=== PATIENT | male | born 1965 | race Native Hawaiian/Other Pacific Islander ===

== ENCOUNTER 2016-08-25 11:30 | Emergency (ER) | payer OTHER ==
[2016-08-25 11:50] VITALS: RESP 16; TEMP 98.6
[2016-08-25] MEDS ORDERED: Tetracaine 0.5% Ophth 2 ML BOTTLE OD STA (12:14)
--- NOTE | 2016-08-25 12:32 | ED PDOC ---
Arrival/HPI - General Chief Complaint: Eye Problem Time Seen by Provider: 08/25/16 12:09 Historian: Patient - History of Present Illness Narrative History of Present Illness (Text): 08/25/16 12:34 51yr old male presents today with foreign body sensation in right eye. pt states last night he was feeling fine and today he woke up feeling like something was in his eye. pt describes a scratchy feeling only when he blinks. denies blurry vision. denies pain with eye movement. denies trauma or injury. pt states that he flushed the eye out at home but still is having foreign body sensation. no fever/chills. no medications taken at home. no other complaints. Time/Duration: Other (this morning) Severity Level: 1 Past Medical History - Provider Review Nursing Documentation Reviewed: Yes - Travel History Have you recently traveled outside [place] w/in the past 3 mons?: No - Tetanus Immunization Tetanus Immunization: Unknown - Cardiac Hx Cardiac Disorders: Yes Hx Hypertension: Yes - Pulmonary Hx Respiratory Disorders: No - Neurological Hx Neurological Disorder: No - HEENT Hx HEENT Disorder: No - Renal Hx Renal Disorder: No - Endocrine/Metabolic Hx Endocrine Disorders: Yes Hx Diabetes Mellitus Type 2: Yes - Hematological/Oncological Hx Blood Disorders: No - Integumentary Hx Dermatological Disorder: No - Musculoskeletal/Rheumatological Hx Musculoskeletal Disorders: Yes Hx Gout: Yes - Gastrointestinal Hx Gastrointestinal Disorders: No - Genitourinary/Gynecological Hx Genitourinary Disorders: No - Psychiatric Hx Psychophysiologic Disorder: No Hx Substance Use: No Family/Social History - Physician Review Nursing Documentation Reviewed: Yes Family/Social History: Unknown Family HX Smoking Status: Heavy Smoker > 10 Cigarettes Daily Hx Alcohol Use: Yes Frequency of alcohol use: Socially Hx Substance Use: No Allergies/Home Meds Allergies/Adverse Reactions: Allergies No Known Allergies Allergy (Verified 08/25/16 11:47) Home Medications: Home Meds Medication Instructions Recorded Confirmed RX: MetFORMIN [glucoPHAGE] 500 mg PO DAILY 08/25/16 08/25/16 RX: Valsartan [Diovan] 40 mg PO DAILY 08/25/16 08/25/16 Review of Systems - Review of Systems Constitutional: absent: Fatigue, Fevers Eyes: Eye Pain. absent: Vision Changes, Photophobia ENT: absent: Sore Throat, Sinus Congestion Respiratory: absent: SOB, Cough Cardiovascular: absent: Chest Pain Gastrointestinal: absent: Abdominal Pain Skin: absent: Rash, Pruritis Neurological: absent: Headache, Dizziness Physical Exam Vital Signs Reviewed: Yes Vital Signs Temp Pulse Resp BP Pulse Ox 08/25/16 14:24 90 16 120/72 97 08/25/16 11:49 98.6 F 97 H 16 116/68 96 Temperature: Afebrile Blood Pressure: Normal Pulse: Regular Respiratory Rate: Normal Appearance: Positive for: Well-Appearing, Non-Toxic, Comfortable Pain Distress: None Mental Status: Positive for: Alert and Oriented X 3 - Systems Exam Head: Present: Atraumatic Pupils: Present: PERRL Extroacular Muscles: Present: EOMI. No: Entrapment Conjunctiva: Present: Injected (right conjunctival injection, perrla, eomi, no corneal abrasion, no ulceration, no hypema. ) Mouth: Present: Moist Mucous Membranes Neck: Present: Normal Range of Motion Respiratory/Chest: Present: Clear to Auscultation Cardiovascular: Present: Regular Rate and Rhythm Skin: Present: Warm, Dry Psychiatric: Present: Alert, Oriented x 3 Medical Decision Making ED Course and Treatment: 08/25/16 12:37 Patient is nontoxic well appearing in no distress Visual acuity within normal limits right eye; Conjunctival injection noted, PERRLA, extraocular muscles intact, no corneal abrasion or ulceration. eye irrigated well; no FB visualized; advised f/u with eye doctor. will d/c home tobramycin; advised immediate return if symptoms worsen,persist or if new symptoms develop. Patient verbalizes understanding of discharge instructions and need for immediate followup. all aspects of this case were discussed the attending of record. Impression: eye irritation Tobrex: 2 drops in the affected eye 4 times daily Followup with the eye doctor within the next 2 days Return immediately if symptoms worsen persist or if new symptoms develop; blurry vision, worsening eye pain, worsening redness or any other concerning symptoms develop. Follow up with her primary care physician within the next 2 days 08/25/16 17:[address] schwartz; discussed the case in depth; he advised that the patient can f/u in the office on saturday at 9am. i have made multiple calls to the patients phone number to tell him that he can f/u on saturday at 9am; no answer; unable to leave voicemail. - Medication Orders Current Medication Orders: Discontinued Medications Tetracaine HCl (Tetracaine 0.5% Ophth Soln) 2 drop OD STAT STA Stop: 08/25/16 12:15 Last Admin: 08/25/16 12:34 Dose: 1 appful Comments: given by ALANA Gold Tobramycin Sulfate (Tobrex 0.3% Ophth Soln) 2 drop OD STAT STA Stop: 08/25/16 13:44 Last Admin: 08/25/16 14:00 Dose: 1 applic Disposition/Present on Arrival - Present on Arrival Any Indicators Present on Arrival: No History of DVT/PE: No History of Uncontrolled Diabetes: No Urinary Catheter: No History of Decub. Ulcer: No History Surgical Site Infection Following: None - Disposition Have Diagnosis and Disposition been Completed?: Yes Diagnosis: Eye irritation Disposition: HOME/ ROUTINE Disposition Time: 12:34 Patient Plan: Discharge Condition: GOOD Additional Instructions: Tobrex: 2 drops in the affected eye 4 times daily Followup with the eye doctor within the next 2 days Return immediately if symptoms worsen persist or if new symptoms develop; blurry vision, worsening eye pain, worsening redness or any other concerning symptoms develop. Follow up with the primary care physician within the next 2 days Prescriptions: Tobramycin 0.3% [Tobramycin 5 Ml] 2 drop OD QID #1 bottle Referrals: Fili Schwartz MD [Staff Provider] - Follow up with primary Paulina Buckley MD [Staff Provider] - Follow up with primary Forms: WORK NOTE
[2016-08-25] MEDS ORDERED: Tobramycin 0.3% OPHT SOLN OD STA (13:43)
[2016-08-25 14:25] VITALS: BP 120/72; PULSE 90; O2SAT 97
== END 2016-08-25 14:25 | disposition home or self-care (01) ==
LOC: ED 11:30 → MERGE 11:30 → ED 14:25
DX: H57.8 Other specified disorders of eye and adnexa (principal); F17.210 Nicotine dependence, cigarettes, uncomplicated; I10 Essential (primary) hypertension; E11.9 Type 2 diabetes mellitus without complications